=== PATIENT | male | born 1980 | race Caucasian/White ===

== ENCOUNTER 2023-12-20 17:02 | Inpatient (IN) | payer OTHER ==
[2023-12-20 20:03] VITALS: BMI 25.1
[2023-12-20] MEDS ORDERED: BENZOCAINE/MENTHOL (CHLORASEPTIC ) LOZENGE MM PRN (22:50)
[2023-12-20] MEDS ORDERED: MAG HYDROX/AL HYDROX/SIMETH 30 ML UNIT-DOSE CUP PO PRN (22:50)
[2023-12-20] MEDS ORDERED: NICOTINE POLACRILEX 2 MG LOZENGE BC PRN (22:50)
[2023-12-20] MEDS ORDERED: IBUPROFEN 600 MG TABLET (FP) PO PRN (22:50)
[2023-12-20] MEDS ORDERED: MAGNESIUM HYDROX 2400MG/30ML ORAL SUSPENSION 30 ML CUP PO PRN (22:50)
[2023-12-20] MEDS ORDERED: ONDANSETRON *ODT* 4 MG TABLET SL PRN (22:50)
[2023-12-20] MEDS ORDERED: ACETAMINOPHEN 325 MG TABLET (FP) PO PRN (22:50)
[2023-12-20] MEDS ORDERED: DICYCLOMINE HCL 10 MG CAPSULE PO PRN (22:50)
[2023-12-20] MEDS ORDERED: IBUPROFEN 400 MG TABLET (FP) PO PRN (22:50)
[2023-12-20] MEDS ORDERED: NALOXONE (NARCAN) HCL 4 MG/0.1 ML SPRAY NS PRN (22:50)
[2023-12-20] MEDS ORDERED: NALOXONE HCL 0.4 MG/ML VIAL IM PRN (22:50)
[2023-12-20] MEDS ORDERED: BISMUTH SUBSALICYLATE 524 MG/30 ML PO PRN (22:50)
[2023-12-20] MEDS ORDERED: P-EPHED 60MG/TRIPROLIDI 2.5MG TABLET PO PRN (22:50)
[2023-12-20] MEDS ORDERED: guaiFENesin 600 MG TABLET.ER (FP) PO PRN (22:50)
[2023-12-20] MEDS ORDERED: NICOTINE POLACRILEX 2 MG GUM BUC PRN (22:50)
[2023-12-20] MEDS ORDERED: LOPERAMIDE HCL 2 MG CAPSULE PO PRN (22:50)
[2023-12-20] MEDS ORDERED: BENZONATATE 200 MG CAPSULE PO PRN (22:50)
[2023-12-20] MEDS ORDERED: POLYETHYLENE GLYCOL (HEALTHYLAX) 3350 17 GM PACKET PO PRN (22:50)
[2023-12-20] MEDS ORDERED: ALBUTEROL SO4 HFA INHALER IH PRN (23:51)
[2023-12-21] MEDS ORDERED: METHOCARBAMOL 500 MG TABLET ONE (01:41)
[2023-12-21] MEDS ORDERED: hydrOXYzine PAMOATE 25 MG CAPSULE (FP) PO ONE (01:42)
[2023-12-21] MEDS: METHOCARBAMOL 500 MG TABLET PO PRN (01:44)
[2023-12-21] MEDS: hydrOXYzine PAMOATE 25 MG CAPSULE (FP) PO PRN (01:44)
[2023-12-21] MEDS: ALBUTEROL SO4 HFA INHALER IH SCH (08:38)
[2023-12-21] MEDS ORDERED: methaDONE HCL 10 MG TABLET PO SCH (09:30)
[2023-12-21] MEDS: cloNIDine HCL 0.1 MG TABLET PO SCH (10:08)
[2023-12-21] MEDS: PRENATAL VITAMINS W/ FOLIC ACID TABLET (FP) PO SCH (10:08)
[2023-12-21] MEDS: SERTRALINE HCL 50 MG TABLET (FP) PO SCH (12:07)
[2023-12-21] MEDS: clonazePAM 1 MG ODT TABLETS SL SCH (12:07)
[2023-12-21] MEDS: PATIENT'S OWN MEDICATION (NON-FORMULARY) (Clonazepam [Klonopin] 2 MG Tablet) SL SCH (12:09)
[2023-12-21] MEDS: GABAPENTIN 300 MG CAPSULE PO SCH (13:10)
[2023-12-21 15:56] LABS: HEMATOCRIT 39.6 % (35.4-49); HEMOGLOBIN 13.7 GM/dL (11.7-16.9); MCH 27.7 pg (25.7-33.7); MCHC 34.5 g/dl (32.0-35.9); MEAN CELL VOLUME 80.3 fl (80-96); MEAN PLT VOLUME 8.6 fl (7.5-11.1); PLATELET COUNT 169 10^3/uL (134-434); RBC 4.93 M/mm3 (4.00-5.60); RDW 13.4 % (11.9-15.9); WHITE BLOOD COUNT 6.3 K/mm3 (4.0-10.0)
[2023-12-21 15:58] LABS: POTASSIUM 4.3 mmol/L (3.5-5.1)
[2023-12-21 16:12] LABS: BLOOD UREA NITROGEN 7.6 mg/dL (7-18); CALCIUM 9.6 mg/dL (8.5-10.1)
[2023-12-21 16:13] LABS: BILIRUBIN,TOTAL 0.4 mg/dL (0.2-1); TOT PROT 7.9 g/dl (6.4-8.2)
[2023-12-21 16:14] LABS: ALBUMIN 3.8 g/dl (3.4-5.0); CREATININE 0.8 mg/dL (0.55-1.3)
[2023-12-21] MEDS: MELATONIN 5 MG TABLETS PO SCH (22:43)
[2023-12-21] MEDS: THIAMINE 100 MG TABLET PO SCH (22:44)
[2023-12-22 06:53] VITALS: RESP 16
[2023-12-22 08:33] VITALS: BP 131/80; PULSE 67; TEMP 97.8
== END 2023-12-22 10:55 | disposition home or self-care (01) | DRG 773 ==
LOC: YASAS 17:02 → Y3N 12-21 02:08
PROVIDERS: ADMIT Allergy & Immunology; ATTEND Surgery
PROC: HZ2ZZZZ Detoxification Services for Substance Abuse Treatment (ICD-10-PCS; principal; 2023-12-21)
DX: F11.23 Opioid dependence with withdrawal (principal); F14.20 Cocaine dependence, uncomplicated; F19.982 Other psychoactive substance use, unspecified with psychoactive substance-induced sleep disorder; F41.9 Anxiety disorder, unspecified; F32.A Depression, unspecified; I10 Essential (primary) hypertension; J45.909 Unspecified asthma, uncomplicated; M54.59 Other low back pain; G89.29 Other chronic pain; Z86.19 Personal history of other infectious and parasitic diseases; Z88.0 Allergy status to penicillin; Z62.810 Personal history of physical and sexual abuse in childhood; Z56.0 Unemployment, unspecified
CPT/HCPCS: 36415; 80053; 80305; 80307; 85027; 86780; 87635; 93005; 93010